=== PATIENT | male | born 1995 ===

== ENCOUNTER → 2020-09-13 13:12 | Outpatient (CLI) | payer OTHER | END | disposition home or self-care (01) | LOC: LAB 13:12 | PROVIDERS: ATTEND Emergency Medicine Pediatric Emergency Medicine | DX: Z03.818 Encounter for observation for suspected exposure to other biological agents ruled out (principal) ==

== ENCOUNTER 2020-09-20 09:20 | Outpatient (CLI) | payer OTHER | END 2020-09-20 10:00 | disposition home or self-care (01) | LOC: LAB 09:20 | DX: Z03.818 Encounter for observation for suspected exposure to other biological agents ruled out (principal) ==

== ENCOUNTER 2020-09-21 08:39 | Outpatient (CLI) | payer OTHER | END 2020-09-21 18:00 | disposition home or self-care (01) | LOC: LAB 08:39 | DX: U07.1 COVID-19 (principal) ==

== ENCOUNTER → 2021-01-17 07:09 | Outpatient (CLI) | payer OTHER | END | disposition home or self-care (01) | LOC: LAB 07:09 | PROVIDERS: ATTEND Emergency Medicine Pediatric Emergency Medicine | DX: Z03.818 Encounter for observation for suspected exposure to other biological agents ruled out (principal) ==

== ENCOUNTER → 2021-01-23 07:53 | Outpatient (CLI) | payer OTHER | END | disposition home or self-care (01) | LOC: LAB 07:53 | PROVIDERS: ATTEND Emergency Medicine Pediatric Emergency Medicine | DX: Z03.818 Encounter for observation for suspected exposure to other biological agents ruled out (principal) ==